=== PATIENT | male | born 1990 | race Two or more races ===

== ENCOUNTER 2021-01-24 22:05 | Emergency (ER) | payer OTHER ==
[~2021-01-24] VITALS: Ht 177.8 cm; Wt 99.8 kg
[2021-01-24 22:05] VITALS: BP 130/72
--- NOTE | 2021-01-24 22:52 | NUR ---
NEGATIVE COVID PER LAB.
== END 2021-01-24 23:19 ==
LOC: ER 22:10
DX: Z20.822 Contact with and (suspected) exposure to COVID-19 (principal); R03.0 Elevated blood-pressure reading, without diagnosis of hypertension
CPT/HCPCS: 87426; 99283; C9803